=== PATIENT | female | born 1990 | race Two or more races ===

== ENCOUNTER 2021-06-20 17:46 | Emergency (ER) | payer BC ==
[~2021-06-20] VITALS: Ht 154.9 cm; Wt 65.0 kg
[2021-06-20 18:03] VITALS: BP 121/71
[2021-06-20 18:55] LABS: BACTERIA,URINE FEW /HPF (0-FEW); BILIRUBIN,URINE NEG (NEG); CLARITY,URINE CLEAR; COLOR,URINE YELLOW; GLUCOSE,URINE NEG (NEG); NITRITE,URINE NEG (NEG); SQUAMOUS EPITHELIAL CELL,UR FEW /LPF; UROBILINOGEN,URINE 0.2 mg/dL (0.2 mg/dL)
[2021-06-20 18:55] LABS: BASO % 0 % (0-3); EOS # 0.1 x10^3/uL (0.0-0.7); EOS % 1 % (0-3); HEMATOCRIT 36.9 % (36.0-47.0); HEMOGLOBIN 11.9 g/dL (12.0-15.5); LYMPH # 2.1 x10^3/uL (1.0-4.8); LYMPH % 23 % (24-48); MEAN CORPUSCULAR HEMOGLOBIN 26 pg (25-35); MEAN CORPUSCULAR HGB CONC 32 g/dL (31-37); MEAN CORPUSCULAR VOLUME 82 fL (79-100); MONO # 0.5 x10^3/uL (0.0-1.1); MONO % 6 % (0-9); NEUT # 6.4 x10^3uL (1.8-7.7); NEUT % 70 % (31-73); PLATELET COUNT 253 x10^3/uL (140-400); RED BLOOD COUNT 4.52 x10^6/uL (3.50-5.40); RED CELL DISTRIBUTION WIDTH 13.9 % (11.5-14.5); WHITE BLOOD COUNT 9.2 x10^3/uL (4.0-11.0)
[2021-06-20 19:06] LABS: ANION GAP 10 (6-14); BLOOD UREA NITROGEN 11 mg/dL (7-20); BUN/CREATININE RATIO 12 (6-20); CALCIUM 9.1 mg/dL (8.5-10.1); CARBON DIOXIDE 26 mmol/L (21-32); CHLORIDE 103 mmol/L (98-107); CREATININE 0.9 mg/dL (0.6-1.0); GFR 73.5; GLUCOSE 116 mg/dL (70-99); POTASSIUM 3.6 mmol/L (3.5-5.1); SODIUM 139 mmol/L (136-145)
[2021-06-20 19:13] LABS: ALBUMIN 3.8 g/dL (3.4-5.0); ALK PHOS 58 U/L (46-116); AST (SGOT) 16 U/L (15-37); TOTAL BILIRUBIN 0.2 mg/dL (0.2-1.0); TOTAL PROTEIN 7.8 g/dL (6.4-8.2)
[2021-06-20 19:21] LABS: ALT (SGPT) < 6 U/L (14-59)
--- NOTE | 2021-06-20 20:02 | PHYS DOC ---
Past History Additional Past Medical Histor: ectopic (FERNIE DALE PULVERIZER) Past Surgical History: Other Additional Past Surgical Histo: Ectopic , Left fallopian tube removed (FERNIE DALE PULVERIZER) Alcohol Use: None (FERNIE DALE PULVERIZER) Adult General Chief Complaint Chief Complaint: ABDOMINAL PAIN IN [facility] HPI Patient is a 31-year-old female patient 2 para 0 with 1 ectopic and left fallopian tube removal 2 years ago, currently 5 weeks who presents to the ED today complaining of slight pelvic pain, symptoms began today. Patient states the pain is sharp, denies anything specific exacerbating or relieving the pain. States the last time she had similar pain she had an ectopic . Patient denies any vaginal bleeding, denies any unusual vaginal discharge or concern for STDs. Denies any urgency frequency or dysuria. She states her biggest concern is to make sure she does not have an ectopic . (FERNIE DALE PULVERIZER) Review of Systems Review of Systems Constitutional: Denies fever or chills [] Eyes: Denies change in visual acuity, redness, or eye pain [] HENT: Denies nasal congestion or sore throat [] Respiratory: Denies cough or shortness of breath [] Cardiovascular: No additional information not addressed in HPI [] GI: Reports pelvic pain, denies nausea, vomiting, bloody stools or diarrhea [] : Denies dysuria or hematuria [] Musculoskeletal: Denies back pain or joint pain [] Integument: Denies rash or skin lesions [] Neurologic: Denies headache, focal weakness or sensory changes [] All other systems were reviewed and found to be within normal limits, except as documented in this note. (FERNIE DALE PULVERIZER) Allergies Allergies Allergies Coded Allergies Type Severity Reaction Last Updated Verified No Known Drug Allergies 06/20/21 No (FERNIE DALE PULVERIZER) Physical Exam Physical Exam Constitutional: Well developed, well nourished, no acute distress, non-toxic appearance. [] HENT: Normocephalic, atraumatic, bilateral external ears normal, oropharynx moist, no oral exudates, nose normal. [] Eyes: PERRLA, EOMI, conjunctiva normal, no discharge. [] Neck: Normal range of motion, no tenderness, supple, no stridor. [] Cardiovascular:Heart rate regular rhythm, no murmur [] Lungs & Thorax: Bilateral breath sounds clear to auscultation [] Abdomen: Bowel sounds normal, soft, no tenderness, no masses, no pulsatile masses. [] Skin: Warm, dry, no erythema, no rash. [] Back: No tenderness, no CVA tenderness. [] Extremities: No tenderness, no cyanosis, no clubbing, ROM intact, no edema. [] Neurologic: Alert and oriented X 3, normal motor function, normal sensory function, no focal deficits noted. [] Psychologic: Affect normal, judgement normal, mood normal. [] (SUYAPAFERNIE APRN) Current Patient Data Vital Signs Vital Signs Date Time Temp Pulse Resp B/P (MAP) Pulse Ox O2 Delivery O2 Flow Rate FiO2 06/20/21 18:03 98.9 80 16 121/71 (88) 100 Room Air Lab Results Laboratory Tests Test 06/20/21 18:05 06/20/21 18:21 06/20/21 18:25 Urine Collection Type Unknown Urine Color Yellow Urine Clarity Clear Urine pH 6.0 Urine Specific [place] 1.020 Urine Protein Neg (NEG-TRACE) Urine Glucose (UA) Neg mg/dL (NEG) Urine Ketones (Stick) Neg mg/dL (NEG) Urine Blood Trace (NEG) Urine Nitrite Neg (NEG) Urine Bilirubin Neg (NEG) Urine Urobilinogen Dipstick 0.2 mg/dL (0.2 mg/dL) Urine Leukocyte Esterase Trace (NEG) Urine RBC 1-2 /HPF (0-2) Urine WBC 5-10 /HPF (0-4) Urine Squamous Epithelial Cells Few /LPF Urine Bacteria Few /HPF (0-FEW) POC Urine HCG, Qualitative hcg positive (Negative) White Blood Count 9.2 x10^3/uL (4.0-11.0) Red Blood Count 4.52 x10^6/uL (3.50-5.40) Hemoglobin 11.9 g/dL (12.0-15.5) L Hematocrit 36.9 % (36.0-47.0) Mean Corpuscular Volume 82 fL (79-100) Mean Corpuscular Hemoglobin 26 pg (25-35) Mean Corpuscular Hemoglobin Concent 32 g/dL (31-37) Red Cell Distribution Width 13.9 % (11.5-14.5) Platelet Count 253 x10^3/uL (140-400) Neutrophils (%) (Auto) 70 % (31-73) Lymphocytes (%) (Auto) 23 % (24-48) L Monocytes (%) (Auto) 6 % (0-9) Eosinophils (%) (Auto) 1 % (0-3) Basophils (%) (Auto) 0 % (0-3) Neutrophils # (Auto) 6.4 x10^3uL (1.8-7.7) Lymphocytes # (Auto) 2.1 x10^3/uL (1.0-4.8) Monocytes # (Auto) 0.5 x10^3/uL (0.0-1.1) Eosinophils # (Auto) 0.1 x10^3/uL (0.0-0.7) Basophils # (Auto) 0.0 x10^3/uL (0.0-0.2) Maternal Serum HCG Beta Subunit 51660 mIU/mL (0-6) H Sodium Level 139 mmol/L (136-145) Potassium Level 3.6 mmol/L (3.5-5.1) Chloride Level 103 mmol/L (98-107) Carbon Dioxide Level 26 mmol/L (21-32) Anion Gap 10 (6-14) Blood Urea Nitrogen 11 mg/dL (7-20) Creatinine 0.9 mg/dL (0.6-1.0) Estimated GFR (Cockcroft-Gault) 73.5 BUN/Creatinine Ratio 12 (6-20) Glucose Level 116 mg/dL (70-99) H Calcium Level 9.1 mg/dL (8.5-10.1) Total Bilirubin 0.2 mg/dL (0.2-1.0) Aspartate Amino Transferase (AST) 16 U/L (15-37) Alanine Aminotransferase (ALT) < 6 U/L (14-59) L Alkaline Phosphatase 58 U/L (46-116) Total Protein 7.8 g/dL (6.4-8.2) Albumin 3.8 g/dL (3.4-5.0) Albumin/Globulin Ratio 1.0 (1.0-1.7) (FERNIE DALE APRN) EKG EKG [] (FERNIE DALE APRN) Radiology/Procedures Radiology/Procedures []PROCEDURE: OB <14 WKS W/TV Transvaginal obstetric ultrasound less than 14 weeks HISTORY: Abdominal pain and . Comparisons: No priors TECHNIQUE: Transvaginal transducer with grayscale and duplex Doppler sonography. FINDINGS: Anteverted uterus measures 8.5 x 5.9 x 4.5 cm. There is a fundal intrauterine single gestational sac. Subjectively normal volume of amniotic fluid. There is a yolk sac which has a diameter of 3 mm. No pole is evident at this time. There is a single gestational sac diameter measurement provided measuring 1.9 cm with estimated sonographic gestational age of 6 weeks 6 days and date of delivery of February 07, 2022. No subchorionic hemorrhage. Left ovary measures 3.1 x 1.5 x 3.0 cm. Right ovary measures 3.9 x 1.6 x 3.8 cm with a couple of subcentimeter follicles and a 1.2 cm cyst with a thick peripheral hypervascular wall typical of a corpus luteum. No pelvic fluid. IMPRESSION: Single intrauterine gestational sac which contains a small yolk sac with no pole at this time. Estimated sonographic gestational age based on the sac diameter is 6 weeks 6 days. Statistically this is most likely a very early intrauterine prior to development of a sonographically detectable pole. There is a right ovarian 1 cm cyst with a thick hypervascular wall typical of a corpus luteum. Attention on clinical and sonographic follow-up in one week is advised to document development of a pole to exclude an anembryonic . Electronically signed by: Josh Tirado MD (06/20/2021 8:34 PM) [facility] [place] DICTATED AND SIGNED BY: JOSH TIRADO MD DATE: 06/20/212028 CC: FERNIE DALE APRN; PCP,NO ~MTH0 0 (FERNIE DALE APRN) Heart Score C/O Chest Pain: N/A Risk Factors: Risk Factors: DM, Current or recent (<one month) smoker, HTN, HLP, family history of CAD, obesity. Risk Scores: Risk Factors: DM, Current or recent (<one month) smoker, HTN, HLP, family history of CAD, obesity. (FERNIE DALE APRN) Course & Med Decision Making Course & Med Decision Making Pertinent Labs and Imaging studies reviewed. (See chart for details) This is a 31-year-old female patient 2 para 0, 1 ectopic presenting today complaining of pelvic pain that began today. No vaginal bleeding. Positive urine hCG, beta-hCG 11982, CBC with a normal WBC, hemoglobin 11.9, hematocrit 36.9. UA negative for infection. Blood group A+. Urine noted for trace amount of leukocytes, no nitrates, urine will be cultured and patient will be contacted if it grows any infection OB ultrasound noted for an IUP 6 weeks 6 days,with gestational sac which conta ins a small yolk sac with no pole at this time. Estimated sonographic gestational age based on the sac diameter is 6 weeks 6 days. Statistically this is most likely a very early intrauterine prior to development of a sonographically detectable pole Patient states she has an appointment with her [employer]OW[employer] ENGINEER in at [facility]. Instructed her to follow-up as soon as possible. Provided the return precautions. (FERNIE DALE APRN) Course & Med Decision Making Did not see or evaluate patient. Did not discuss patient with ACTIVATED SLUDGE ATTENDANT. Agree with ACTIVATED SLUDGE ATTENDANT's work-up and disposition per note. (LEELA KU MD) Dragon Disclaimer Dragon Disclaimer This electronic medical record was generated, in whole or in part, using a voice recognition dictation system. (FERNIE DALE APRN) Departure Departure: Impression: Primary Impression: Abdominal pain in Disposition: HOME / SELF CARE / HOMELESS Condition: STABLE Referrals: PCP,NO (PCP) Follow-up with [facility] as soon as possible Patient Instructions: Abdominal Pain During Problem Qualifiers Primary Impression: Abdominal pain in Trimester: first trimester Qualified Codes: O26.891 - Other specified related conditions, first trimester; R10.9 - Unspecified abdominal pain FERNIE DALE APRN Jun 20, 2021 20:02 LEELA KU MD Jun 20, 2021 21:15
--- NOTE | 2021-06-20 20:37 | RAD ---
Transvaginal obstetric ultrasound less than 14 weeks HISTORY: Abdominal pain and . Comparisons: No priors TECHNIQUE: Transvaginal transducer with grayscale and duplex Doppler sonography. FINDINGS: Anteverted uterus measures 8.5 x 5.9 x 4.5 cm. There is a fundal intrauterine single gestat ional sac. Subjectively normal volume of amniotic fluid. There is a yolk sac which has a diameter of 3 mm. No pole is evident at this time. There is a single gestational sac diameter measurement p rovided measuring 1.9 cm with estimated sonographic gestational age of 6 weeks 6 days and date of del neno of February 07, 2022. No subchorionic hemorrhage. Left ovary measures 3.1 x 1.5 x 3.0 cm. Right ovary measures 3.9 x 1.6 x 3.8 cm with a couple of subc entimeter follicles and a 1.2 cm cyst with a thick peripheral hypervascular wall typical of a corpus luteum. No pelvic fluid. IMPRESSION: Single intrauterine gestational sac which contains a small yolk sac with no pole at this time. Estimated sonographic gestational age based on the sac diameter is 6 weeks 6 days. Statis tically this is most likely a very early intrauterine prior to development of a sonographic ally detectable pole. There is a right ovarian 1 cm cyst with a thick hypervascular wall typica l of a corpus luteum. Attention on clinical and sonographic follow-up in one week is advised to docum ent development of a pole to exclude an anembryonic . Electronically signed by: Miko Tirado MD (06/20/2021 8:34 PM) [facility]
== END 2021-06-20 21:16 | disposition home or self-care (01) ==
LOC: ER 17:46
DX: O26.891 Other specified pregnancy related conditions, first trimester (principal); R10.9 Unspecified abdominal pain; Z3A.01 Less than 8 weeks gestation of pregnancy
CPT/HCPCS: 36415; 76801; 76817; 80053; 81001; 81025; 84702; 85025; 86850; 86900; 86901; 87086; 87147; 99284-25